=== PATIENT | male | born 2000 | race Caucasian/White ===

== ENCOUNTER 2020-11-30 11:14 | Emergency (ER) | payer OTHER ==
[~2020-11-30] VITALS: Ht 182.9 cm; Wt 77.1 kg
== END 2020-11-30 13:32 | disposition home or self-care (01) ==
LOC: ER 11:14
DX: J06.9 Acute upper respiratory infection, unspecified (principal); Z20.822 Contact with and (suspected) exposure to COVID-19
CPT/HCPCS: 99283

== ENCOUNTER 2020-12-17 21:17 | Emergency (ER) | payer OTHER ==
[~2020-12-17] VITALS: Ht 182.9 cm; Wt 77.1 kg
== END 2020-12-17 22:28 | disposition home or self-care (01) ==
LOC: ER 21:17
DX: U07.1 COVID-19 (principal); R06.02 Shortness of breath; R43.8 Other disturbances of smell and taste; R05 Cough; R09.81 Nasal congestion; R51.9 Headache, unspecified
CPT/HCPCS: 99284